=== PATIENT | female | born 1965 ===

== ENCOUNTER 2016-11-14 08:23 | Day surgery (SDC) | payer OTHER ==
[2016-11-09 07:13] VITALS: BMI 33.3
[2016-11-14] MEDS ORDERED: Lactated Ringer's 1,000 ML IV ONE ×2 (09:12)
--- NOTE | 2016-11-14 09:50 | CP.SDSHP ---
Same Day Surgery H & P - History Proposed Procedure: Hysteroscopy and Dilatation and Curettage Pre-Op Diagnosis: Abnormal Uterine Bleeding - Previous Medical/Surgical History Previous Surgical History: 2 C/Sections - Allergies Allergies: Allergies No Known Allergies Allergy (Verified 11/29/14 02:25) - Physical Exam Vital Signs: Vital Signs 11/14/16 08:42 Temperature 98.4 F Pulse Rate 77 Respiratory 18 Rate Blood Pressure 123/73 O2 Sat by Pulse 98 Oximetry Heart: WNL Lungs: WNL GI: WNL - {Optional Preform as Required} SETTER AUTOMATIC SPINNING LATHE: Other (Uterus 12 cm.) - Impression Pt. Evaluated Today:Candidate for Anesthesia & Procedure: Yes - Date & Time Date: 11/14/16 Time: 09:49 Short Stay Discharge - Short Stay Discharge Admitting Diagnosis/Reason for Visit: ABNORMAL UTERINE BLEEDING Disposition: HOME/ ROUTINE
[2016-11-14] MEDS ORDERED: Propofol 10 mg/ml Inj (20 ML) ONE (10:08)
[2016-11-14] MEDS ORDERED: Midazolam 2 MG/2 ML VIAL ONE (10:08)
[2016-11-14] MEDS ORDERED: Lidocaine Hydrochloride 5 ML INJ ONE (10:11)
[2016-11-14] MEDS ORDERED: ceFAZolin IV 1 gm in Dextrose 50 ML IVPB ONE (10:29)
[2016-11-14] MEDS ORDERED: HYDROmorphone 0.5 mg/0.5 ml ISec IVP PRN (10:33)
[2016-11-14 12:42] VITALS: RESP 16
--- NOTE | 2016-11-14 12:52 | OP ---
PROCEDURE DATE: 11/14/2016 PREOPERATIVE DIAGNOSES: Abnormal uterine bleeding, uterine fibroids. POSTOPERATIVE DIAGNOSES: Abnormal uterine bleeding, uterine fibroids. PROCEDURE: Hysteroscopy and dilatation and curettage. SURGEON: Dr. Rios DISK OPERATOR: None. ANESTHESIA: Given by VIDHI Del Angel. FINDINGS: Examination under anesthesia, the uterus was about 16 cm. The uterus sounded to 14 cm. On hysteroscopy, the endometrium appeared normal. DESCRIPTION OF PROCEDURE: Under adequate general anesthesia, the patient was placed in the lithotomy position. Perineum and vagina were prepped and draped in the usual sterile fashion. The bladder was emptied by straight catheterization. The cervix was then exposed using a weighted speculum and an anterior speculum. The cervix was grasped with single tooth tenaculum. The uterus was sounded to 14 cm. The cervix was then gradually dilated to #16 dilator. Using a 5 mm hysteroscope, the endometrial cavity was inspected. There were no abnormal findings. Endometrial curettage was then performed and the specimen was submitted to pathology. All the instruments were removed from the vagina. The patient was awoken from anesthesia and transferred to the recovery room in good condition. Aryan Rios MD cc: [id number] TT: 11/14/2016 12:51:59 en MTDD
[2016-11-14 13:14] VITALS: BP 135/60; PULSE 60; TEMP 97.9; O2SAT 99
== END 2016-11-14 13:30 | disposition home or self-care (01) ==
LOC: C.SDS 08:23
PROVIDERS: ATTEND Obstetrics & Gynecology
DX: D25.9 Leiomyoma of uterus, unspecified (principal); N93.9 Abnormal uterine and vaginal bleeding, unspecified
CPT/HCPCS: 58558; 88305; J0131; J0690; J1100; J1170; J2250; J2405; J2704; J3010; J7120

== ENCOUNTER 2016-12-16 06:30 | Inpatient (IN) | payer OTHER ==
[2016-12-12 12:28] VITALS: BMI 32.5
--- NOTE | 2016-12-16 06:37 | CP.PCM.HP ---
History of Present Illness - History of Present Illness History of Present Illness: 51 year old with 3 year history of metromenorrhagia and large fibroid admitted for Myomectomy at patient.s request, possible hysterectomy. Hysteroscopy and D&C showed proliferative endometrium. Present on Admission - Present on Admission Any Indicators Present on Admission: No Review of Systems - Reproductive: Female Reproductive:Female: As Per HPI Additional comments: 2 deliveries with BTL. Past Patient History - Infectious Disease Hx of Infectious Diseases: None - Past Medical History & Family History Past Medical History?: Yes - Past Social History Smoking Status: Never Smoked - CARDIAC Hx Cardiac Disorders: No - PULMONARY Hx Respiratory Disorders: No - NEUROLOGICAL Hx Neurological Disorder: No - HEENT Hx HEENT Problems: No - RENAL Hx Chronic Kidney Disease: No - ENDOCRINE/METABOLIC Hx Endocrine Disorders: No - HEMATOLOGICAL/ONCOLOGICAL Hx Blood Disorders: Yes (LOW VIT D) - INTEGUMENTARY Hx Dermatological Problems: Yes Other/Comment: Breast Mass - MUSCULOSKELETAL/RHEUMATOLOGICAL Hx Musculoskeletal Disorders: No Hx Back Pain: Yes (CERVICAL) Hx Falls: No - GASTROINTESTINAL Hx Gastrointestinal Disorders: No - GENITOURINARY/GYNECOLOGICAL Other/Comment: Abnormal Menstrual Bleeding - PSYCHIATRIC Hx Psychophysiologic Disorder: No Hx Substance Use: No - SURGICAL HISTORY Hx Breast Biopsy: Yes - ANESTHESIA Hx Anesthesia: Yes Hx Anesthesia Reactions: No Hx Malignant Hyperthermia: No Has any member of the family had a problem w/ anesthesia?: No Meds Allergies/Adverse Reactions: Allergies Allergy/AdvReac Type Severity Reaction Status Date / Time No Known Allergies Allergy Verified 11/29/14 02:25 Physical Exam - Constitutional Appears: Well - Respiratory Exam Respiratory Exam: Clear to Auscultation Bilateral, NORMAL BREATHING PATTERN - Cardiovascular Exam Cardiovascular Exam: REGULAR RHYTHM - GI/Abdominal Exam GI & Abdominal Exam: Normal Bowel Sounds Additional comments: Uterus 16 cm. irregular. - Extremities Exam Extremities exam: Positive for: normal inspection Assessment & Plan - Assessment and Plan (Free Text) Assessment: Symptomatic Uterine Fibroid. Plan: Patient requests Myomectomy if feasible even though she understands might not control abnormal Uterine bleeding. Otherwise will perform Hysterectomy. Risks of injuries to bowel, bladder and ureters explained. - Date & Time Date: 12/16/16 Time: 06:41
[2016-12-16] MEDS ORDERED: Propofol 10 mg/ml Inj (20 ML) ONE (07:40)
[2016-12-16] MEDS ORDERED: Midazolam 2 MG/2 ML VIAL ONE ×2 (07:41→07:59)
[2016-12-16] MEDS ORDERED: cefOXitin IV 2 gm in Dextrose 2 GM/50 ML BAG IVPB ONE (07:47)
[2016-12-16] MEDS ORDERED: Vasopressin 20 Units/ml Inj ONE (07:51)
[2016-12-16] MEDS ORDERED: Sodium Chloride 0.9% 0 ML IV ONE (07:51)
[2016-12-16] MEDS ORDERED: Rocuronium 10 mg/ml (5 ml) ONE (08:10)
[2016-12-16] MEDS ORDERED: Succinylcholine Chloride 20 mg/ml Syr (5 ml) IV ONE (08:16)
[2016-12-16] MEDS ORDERED: Morphine 4 MG/ML VIAL ONE ×2 (08:43→10:11)
[2016-12-16] MEDS ORDERED: Neostigmine Methylsulfate 3mg/3ml Syringe IV ONE (08:46)
[2016-12-16] MEDS ORDERED: ePHEDrine 50 mg/ml Inj ONE (09:01)
[2016-12-16] MEDS ORDERED: Lactated Ringer's 1,000 ML IV SCH (09:30)
--- NOTE | 2016-12-16 10:06 | PCM.SURG1 ---
Surgeon's Initial Post Op Note - Surgeon's Notes Surgeon: Gabriel Clinical Quality Manager: Tanja Type of Anesthesia: General Endo Pre-Operative Diagnosis: Symptomatic Uterine Fibroids Operative Findings: Multible UTERINE mYOMAS,NORMAL OVARIES, AND FALLOPIAN TUBES Post-Operative Diagnosis: The same Operation Performed: SupreCervical Hysterectomy and Bilateral Salpingectomy Specimen/Specimens Removed: Uterus and both Fallopian tubes Estimated Blood Loss: EBL {In ML}: 250 Blood Products Given: N/A Drains Used: No Drains Post-Op Condition: Good Date of Surgery/Procedure: 12/16/16 Time of Surgery/Procedure: 10:06
[2016-12-16] MEDS ORDERED: HYDROmorphone 0.5 mg/0.5 ml ISec IVP PRN (11:14)
[2016-12-16] MEDS ORDERED: HYDROmorphone 0.5 mg/0.5 ml ISec IVP ONE ×2 (11:30→11:40)
[2016-12-16] MEDS: Oxycodone/Acetaminophen 5/325 mg Tab PO PRN (21:57)
[2016-12-17] MEDS ORDERED: Simethicone 80 mg Chewtab PO STA (00:26)
[2016-12-17] MEDS: Oxycodone/Acetaminophen 5/325 mg Tab PO PRN ×4 (01:22→19:54)
[2016-12-17 08:15] LABS: HEMATOCRIT 36.8 % (34.0-47.0); MEAN CELL VOLUME 88.7 fL (81.0-99.0); MEAN CORPUSCULAR HEMOGLOBIN 28.9 pg (27.0-31.0); MEAN CORPUSCULAR HGB CONC 32.6 g/dL (33.0-37.0); MEAN PLATELET VOLUME 8.6 fL (7.2-11.7); RED CELL DISTRIBUTION WIDTH 14.1 % (11.5-14.5); WHITE BLOOD COUNT 9.6 K/uL (4.8-10.8)
[2016-12-17] MEDS: Simethicone 80 mg Chewtab PO SCH ×3 (09:12→17:01)
[2016-12-17] MEDS: Enoxaparin 40 mg Syringe SC SCH (09:12)
--- NOTE | 2016-12-17 10:34 | CP.PCM.PN ---
Subjective - Date & Time of Evaluation Date of Evaluation: 12/17/16 Time of Evaluation: 10:29 - Subjective Subjective: Complains of incisional pain only. No flatus or bowel movement yet. Tolerated liquid diet. Objective - Vital Signs/Intake and Output Vital Signs (last 24 hours): Temp Pulse Resp BP Pulse Ox 98.4 F 88 18 107/68 97 12/17/16 07:38 12/17/16 07:38 12/17/16 07:38 12/17/16 07:38 12/17/16 07:38 Intake and Output: 12/17/16 12/17/16 06:59 18:59 Output Total 1650 Balance -1650 - Medications Medications: Current Medications Enoxaparin Sodium (Lovenox) 40 mg SC DAILY [facility] Last Admin: 12/17/16 09:12 Dose: 40 mg Lactated Ringer's (Lactated Ringer's) 1,000 mls @ 100 mls/hr IV .Q10H [facility] Ibuprofen (Motrin Tab) 600 mg PO Q6 PRN PRN Reason: Pain, moderate (4-7) Oxycodone/Acetaminophen (Percocet 5/325 Mg Tab) 2 tab PO Q4 PRN PRN Reason: Pain, severe (8-10) Stop: 12/19/16 09:57 Last Admin: 12/17/16 07:50 Dose: 2 tab Simethicone (Mylicon Chew Tab) 80 mg PO TID [facility] Last Admin: 12/17/16 09:12 Dose: 80 mg - Labs Labs: 12/17/16 08:09 - Constitutional Appears: Well - Respiratory Exam Respiratory Exam: Clear to Ausculation Bilateral, NORMAL BREATHING PATTERN - Cardiovascular Exam Cardiovascular Exam: REGULAR RHYTHM - GI/Abdominal Exam GI & Abdominal Exam: Normal Bowel Sounds Additional comments: Soft, appropriate incisional tenderness. - Extremities Exam Extremities Exam: Normal Inspection Assessment and Plan - Assessment and Plan (Free Text) Assessment: Stable Post Hysterectomy. Plan: Ambulate . Diet as tolerated. Analgesia at patient's request.
[2016-12-18 07:59] VITALS: BP 114/63; PULSE 82; RESP 18; TEMP 98.9; O2SAT 97
[2016-12-18] MEDS: Simethicone 80 mg Chewtab PO SCH (09:07)
[2016-12-18] MEDS: Enoxaparin 40 mg Syringe SC SCH (09:07)
[2016-12-18] MEDS: Oxycodone/Acetaminophen 5/325 mg Tab PO PRN (10:11)
--- NOTE | 2016-12-18 10:38 | CP.PCM.PN ---
Subjective - Date & Time of Evaluation Date of Evaluation: 12/18/16 Time of Evaluation: 10:34 - Subjective Subjective: Complains of incisional pain relieved by Percocet. No bowel movement. Objective - Vital Signs/Intake and Output Vital Signs (last 24 hours): Temp Pulse Resp BP Pulse Ox 98.9 F 82 18 114/63 97 12/18/16 08:00 12/18/16 08:00 12/18/16 08:00 12/18/16 08:00 12/18/16 08:00 - Medications Medications: Current Medications Enoxaparin Sodium (Lovenox) 40 mg SC DAILY [facility] Last Admin: 12/18/16 09:07 Dose: 40 mg Lactated Ringer's (Lactated Ringer's) 1,000 mls @ 100 mls/hr IV .Q10H [facility] Ibuprofen (Motrin Tab) 600 mg PO Q6 PRN PRN Reason: Pain, moderate (4-7) Last Admin: 12/18/16 09:06 Dose: 600 mg Oxycodone/Acetaminophen (Percocet 5/325 Mg Tab) 2 tab PO Q4 PRN PRN Reason: Pain, severe (8-10) Stop: 12/19/16 09:57 Last Admin: 12/18/16 10:11 Dose: 2 tab Simethicone (Mylicon Chew Tab) 80 mg PO TID [facility] Last Admin: 12/18/16 09:07 Dose: 80 mg - Labs Labs: 12/17/16 08:09 - Cardiovascular Exam Cardiovascular Exam: REGULAR RHYTHM - GI/Abdominal Exam GI & Abdominal Exam: Normal Bowel Sounds Additional comments: Incision C/D/I - Extremities Exam Extremities Exam: Normal Inspection Assessment and Plan - Assessment and Plan (Free Text) Assessment: Stable Post Hysterectomy. Plan: Discharge home. Follow up 2 weeks.
--- NOTE | 2016-12-18 10:43 | CP.PCM.DIS ---
Provider - Provider Date of Admission: 12/16/16 09:56 Attending physician: Aryan Rios MD Time Spent in preparation of Discharge (in minutes): 30 Hospital Course - Lab Results Lab Results: Most Recent Lab Values WBC 9.6 K/uL (4.8-10.8) 12/17/16 08:09 RBC 4.15 Mil/uL (3.80-5.20) 12/17/16 08:09 Hgb 12.0 g/dL (11.0-16.0) 12/17/16 08:09 Hct 36.8 % (34.0-47.0) 12/17/16 08:09 MCV 88.7 fL (81.0-99.0) 12/17/16 08:09 MCH 28.9 pg (27.0-31.0) 12/17/16 08:09 MCHC 32.6 g/dL (33.0-37.0) L 12/17/16 08:09 RDW 14.1 % (11.5-14.5) 12/17/16 08:09 Plt Count 214 K/uL (130-400) 12/17/16 08:09 MPV 8.6 fL (7.2-11.7) 12/17/16 08:09 Blood Type A POSITIVE 12/16/16 07:22 Antibody Screen Negative 12/16/16 07:22 - Date & Time of H&P Date of H&P: 12/16/16 Discharge Exam - Respiratory Exam Respiratory Exam: NORMAL BREATHING PATTERN - GI/Abdominal Exam GI & Abdominal Exam: Normal Bowel Sounds Discharge Plan - Follow Up Plan Condition: GOOD Disposition: HOME/ ROUTINE Instructions: Abdominal Hysterectomy (DC), Wound Healing and Your Diet (DC), Care For Your Absorbable Stitches (DC) Additional Instructions: follow up in 2 weeks in office/ no heavy lifting/ nothing in the vagina/ no driving
--- NOTE | 2016-12-19 10:43 | OP ---
PROCEDURE DATE: 12/16/2016 PREOPERATIVE DIAGNOSES: Fibroid uterus, menometrorrhagia. POSTOPERATIVE DIAGNOSES: Fibroid uterus, menometrorrhagia. PROCEDURE: Supracervical abdominal hysterectomy and bilateral salpingectomy. SURGEON: Aryan Rios MD ARTIFICIAL GLASS EYE MAKER: Dr. Agrawal, who was required for retraction and was present throughout the entire procedure. ANESTHESIA: General endotracheal tube. FINDINGS: About 16cm uterus. Normal ovaries. The fallopian tubes had evidence of previous ligation bilateral. There was minimal adhesion between the bladder and the lower uterine segment. DESCRIPTION OF PROCEDURE: Under adequate general anesthesia, the abdomen was prepped and draped in the usual sterile fashion. Going through a previous Pfannenstiel scar, the skin was incised and carried through the subcutaneous tissues to the fascia. The fascia was divided transversely and dissected off the rectus muscle. The rectus muscle was in the midline sharply and the abdomen was entered. The uterus was delivered into the incision. The findings above were noted. The right round ligament was transected using the LigaSure. The broad ligament was opened anteriorly to the vesicouterine peritoneal fold. The ovarian ligament and the fallopian tube were doubly clamped, transected and doubly ligated with 0 Vicryl suture. The left round ligament was similarly transected with the LigaSure. The left fallopian tube and left ovarian ligament were doubly clamped, transected and doubly ligated with 0 Vicryl suture. The right uterine vessels were doubly clamped with Annie clamp, transected and doubly ligated with 0 Vicryl suture. The left uterine vessels were similarly ligated after transection. The uterus was then removed from the cervix. The endocervical stump was closed using 0 Vicryl suture, [id number] sutures. Hemostasis was achieved. Both fallopian tubes were transected using the LigaSure. Hemostasis was achieved. The abdomen was then copiously irrigated with saline. All the surgical stumps were reinspected and noted to be hemostatic. The parietal peritoneum was then approximated with 0 chromic catgut. The rectus fascia was approximated with 0 Vicryl suture continuous fashion. The subcutaneous tissues were approximated with 2-0 plain catgut. The skin was closed using 4-0 Biosyn subcuticular suture. The estimated blood loss was about 250 mL. Fluids received were 1200 mL crystalloid. The urine output was 100 mL clear. The sponge, instrument and needle counts were correct x 3. The patient was extubated in the operating room. The specimen was the uterus and both fallopian tubes to pathology. The patient was transferred from the operating room to the recovery room in good condition. Aryan Rios MD cc: [id number] TT: 12/19/2016 10:43:22 en MTDD
== END 2016-12-18 12:00 | disposition home or self-care (01) | DRG 743 ==
LOC: C.SDS 06:30 → C.4M 09:56
PROVIDERS: ADMIT Obstetrics & Gynecology; ATTEND Obstetrics & Gynecology
PROC: 0UT70ZZ Resection of Bilateral Fallopian Tubes, Open Approach (ICD-10-PCS; 2016-12-16)
PROC: 0UT90ZZ Resection of Uterus, Open Approach (ICD-10-PCS; principal; 2016-12-16 07:53)
DX: D25.9 Leiomyoma of uterus, unspecified (principal); N92.1 Excessive and frequent menstruation with irregular cycle; Z98.51 Tubal ligation status

== ENCOUNTER 2017-02-04 17:03 | Emergency (ER) | payer OTHER ==
[2017-02-04 17:03] VITALS: BMI 32.5
[2017-02-04 17:26] VITALS: BP 131/80; PULSE 81; RESP 18; TEMP 98.1; O2SAT 98
--- NOTE | 2017-02-04 17:41 | C.PDOC ---
History Of Present Illness <Alejandro Mario - Last Filed: 02/04/17 17:49> <Kusum Sandoval - Last Filed: 02/04/17 20:34> 51 y/o female presents to ED for evaluation left chest wall burning rash gradually developed 4-5 days ago. Patient denies fever, chills, injury or any other complaints at this time. (Kusum Sandoval) <Alejandro Mario - Last Filed: 02/04/17 17:49> History Per: Patient History/Exam Limitations: no limitations Onset/Duration Of Symptoms: Days Current Symptoms Are (Timing): Still Present <Keerthi Sandovalnika - Last Filed: 02/04/17 20:34> Time Seen by Provider: 02/04/17 17:23 Chief Complaint (Nursing): Abnormal Skin Integrity Past Medical History Reviewed: Historical Data, Nursing Documentation, Vital Signs Family History: States: No Known Family Hx - Social History Hx Tobacco Use: No Hx Alcohol Use: No Hx Substance Use: No - Immunization History Hx Tetanus Toxoid Vaccination: No Hx Influenza Vaccination: Yes Hx Pneumococcal Vaccination: No <Keerthi Sandovalnika - Last Filed: 02/04/17 20:34> Vital Signs: Last Vital Signs Temp 98.1 F 02/04/17 18:19 Pulse 81 02/04/17 18:19 Resp 18 02/04/17 18:19 BP 131/80 02/04/17 18:19 Pulse Ox 98 02/04/17 18:19 - [facility] Procedures OTHER SKIN & SUBQ I D (11/26/14) RESECTION OF BILATERAL FALLOPIAN TUBES, OPEN APPROACH (12/16/16) RESECTION OF UTERUS, OPEN APPROACH (12/16/16) Review Of Systems Except As Marked, All Systems Reviewed And Found Negative. Constitutional: Negative for: Fever, Chills Skin: Positive for: Rash Neurological: Negative for: Weakness, Numbness <Keerthi Sandovalnika - Last Filed: 02/04/17 20:34> Physical Exam - Physical Exam Appears: Well, Non-toxic, No Acute Distress Skin: Normal Color, Warm, Rash (Left lateral chest wall vesicular rash on erythematous base extends to Left posterior chest wall overlying T6 dermatome ) Eye(s): bilateral: PERRL Cardiovascular: Rhythm Regular Respiratory: No Decreased Breath Sounds, No Accessory Muscle Use, No Stridor, No Wheezing Gastrointestinal/Abdominal: Soft, No Tenderness, No Distention, No Guarding Back: No CVA Tenderness Extremity: No Pedal Edema Neurological/Psych: Oriented x3, Normal Speech <Kusum Sandoval - Last Filed: 02/04/17 20:34> ED Course And Treatment O2 Sat by Pulse Oximetry: 98 Pulse Ox Interpretation: Normal Progress Note: On re-evaluation, pt is not in any apparent distress. PulseOx 100% RA. NEck: (-) meningeal sign. ENT: no acute findings. Lungs: CTA B/L, BS equal B/L. Abd: benign, (-) guarding, (-) rebound. Skin: exam c/w H.Zoster Left T6 dermatome, no evidence of superimposed infection. No cellulitis. Pt advised on course of ds. ref. to f/u with pmd in 2-3 days for re-eavl. return if any new changes. <Kusum Sandoval - Last Filed: 02/04/17 20:34> Disposition <Alejandro Mario - Last Filed: 02/04/17 17:49> Counseled Patient/Family Regarding: Diagnosis, Need For Followup, Rx Given - Disposition Disposition Time: 17:41 <Kusum Sandoval - Last Filed: 02/04/17 20:34> - Disposition Referrals: Smiley Adhikari MD [Staff Provider] - Disposition: HOME/ ROUTINE Condition: STABLE Additional Instructions: Take medication as prescribed Follow up with PMD in 2-3 days for re-evaluation. Return to ED oif any worsening or new changes. Prescriptions: Bacitracin OINT 1 applic TP BID #1 tube traMADol [Ultram] 50 mg PO TID #7 tab valACYclovir [Valtrex] 1 gm PO TID #21 tab Instructions: Shingles (ED) Forms: Work Excuse - Clinical Impression Clinical Impression: Herpes zoster - PA / LASER BEAM COLOR SCANNER OPERATOR / Resident Statement / has reviewed & agrees with the documentation as recorded. - Scribe Statement The provider has reviewed the documentation as recorded by the Scribe <Alejandro Mario - Last Filed: 02/04/17 17:49> - PA / LASER BEAM COLOR SCANNER OPERATOR / Resident Statement / has reviewed & agrees with the documentation as recorded. - Scribe Statement The provider has reviewed the documentation as recorded by the Scribe <Kusum Sandoval - Last Filed: 02/04/17 20:34> - Scribe Statement Greg Rodriguez All medical record entries made by the Scribe were at my direction and personally dictated by me. I have reviewed the chart and agree that the record accurately reflects my personal performance of the history, physical exam, medical decision making, and the department course for this patient. I have also personally directed, reviewed, and agree with the discharge instructions and disposition. (Alejandro Mario)
== END 2017-02-04 18:19 | disposition home or self-care (01) ==
LOC: C.ER 17:03
DX: B02.9 Zoster without complications (principal)

== ENCOUNTER 2018-09-12 16:36 | Outpatient (CLI) | payer OTHER | END 2018-09-12 16:37 | disposition home or self-care (01) | LOC: C.MRIC 16:36 | DX: M54.5 Low back pain (principal); M47.22 Other spondylosis with radiculopathy, cervical region ==

== ENCOUNTER 2018-10-16 09:26 | Outpatient (CLI) | payer OTHER | END 2018-10-16 09:27 | disposition home or self-care (01) | LOC: C.LAB 09:26 | DX: M47.22 Other spondylosis with radiculopathy, cervical region (principal) ==

== ENCOUNTER 2018-10-22 12:58 | Outpatient (CLI) | payer OTHER | END 2018-10-22 12:59 | disposition home or self-care (01) | LOC: C.PAT 12:58 | DX: S43.422D Sprain of left rotator cuff capsule, subsequent encounter (principal) ==

== ENCOUNTER 2018-11-09 06:03 | Day surgery (SDC) | payer OTHER ==
[2018-07-19 09:19] VITALS: BMI 32.5
[2018-11-09] MEDS ORDERED: Ropivacaine 0.5% PF (20 ml) inj INJ ONE ×2 (06:56→13:15)
[2018-11-09] MEDS ORDERED: ceFAZolin 1 gm in NS 2 GM/200 ML BAG IVPB ONE (07:40)
[2018-11-09] MEDS ORDERED: Lidocaine Hydrochloride 5 ML INJ ONE (07:41)
[2018-11-09] MEDS ORDERED: Midazolam 2 MG/2 ML VIAL ONE (08:10)
[2018-11-09] MEDS ORDERED: Propofol 10 mg/ml Inj (20 ML) ONE (08:10)
[2018-11-09] MEDS ORDERED: Lidocaine Hydrochloride 0 ML INJ ONE (08:11)
[2018-11-09] MEDS ORDERED: methylPREDNISolone Depo 80 mg/ml Inj ONE (08:11)
[2018-11-09] MEDS ORDERED: Rocuronium 10 mg/ml (10 ml) ONE ×2 (08:12→10:37)
[2018-11-09] MEDS ORDERED: EPINEPHrine- 1.5 MG in Sodium Chloride 0.9% Irrig 3,000 ML IR SCH (08:15)
[2018-11-09] MEDS ORDERED: Lidocaine/Epinephrine 1% 1:100000 10 ML IJ ONE (09:01)
[2018-11-09] MEDS ORDERED: Dexamethasone 4 mg/1 ml ONE (09:20)
[2018-11-09] MEDS ORDERED: HYDROmorphone 0.5 mg/0.5 ml ISec IVP PRN (09:23)
[2018-11-09] MEDS ORDERED: EPINEPHrine 1 mg/ml (1:1000) Inj ONE (10:37)
--- NOTE | 2018-11-09 10:53 | PCM.ANESB1 ---
Interscalene Block - Brachial Plexus Date of Procedure: 11/09/18 Anesthesiologist: Leydi Pre-Procedure Diagnosis: Left shoulder rotator cuff tear Post-Procedure Diagnosis: same Procedure Performed: Interscalene Block of Brachial Plexus Left - Procedure Interscalene Block of Brachial Plexus: This procedure was explained to the patient that it is for post-operative pain management. Consent was obtained after a thorough discussion with the patient regarding the benefits and possible complications of local anesthetic block of the Brachial Plexus at the Interscalene area. The patient was brought to the Operating Room and standard monitors were applied. Time out was held with the circulating nurse to confirm the correct surgery and appropriate block. After applying Oxygen by nasal cannula and administering IV Sedation, the patient's head was gently rotated away from the left operative shoulder and the anterior scalene groove was carefully palpated. The ultrasound transducer was then applied to the skin in the transverse plane and the brachial plexus was visualized lateral to the carotid artery and in between the anterior and middle scalene muscles. After identification,the anterior lateral portion of the neck was prepped with chloraprep and 3mL of Lidocaine 1% was injected subcutaneously for topical analgesia. At this point, a # 22 gauge Stimuplex 2 inches insulated needle was inserted into the interscalene groove and directed in a caudal and midline direction. The needle was inserted lateral to the ultrasound transducer in-plane towards the brachial plexus in a [id number] direction. Needle advancement was performed carefully under direct ultrasound visualization. Nerve stimulator was used and twitched of the affected extremity including the hand brachialis muscles, biceps and the deltoid was obtained at a current of 0.5 MA. After repeated negative aspiration, 2cc of 0.5% Ropivacaine were injected and this was followed with 28 cc of 0.5% Ropivacaine. Under ultrasound guidance the local anesthetics were observed surrounding the roots of the brachial plexus. The needle was removed intact and sterile dressing was applied. The patient had stable vital signs, was conscious and in no apparent distress. The patient tolerated the interscalene block of the bracheal plexus well with stable vital signs and was prepared for subsequent surgery.
[2018-11-09] MEDS ORDERED: Neostigmine 1:1000 (1 mg/ml) Inj ONE (11:08)
[2018-11-09] MEDS ORDERED: Morphine 1 mg/ml preservative-free Inj(Duramorph) ONE (11:12)
[2018-11-09] MEDS ORDERED: Bupivacaine 0.25% 20 ML INJ IJ ONE (11:13)
--- NOTE | 2018-11-09 11:37 | PCM.SURG1 ---
Surgeon's Initial Post Op Note - Surgeon's Notes Surgeon: Renate Valiente MD [employer] Trader: Tay Stratton PA-C Type of Anesthesia: General Endo Anesthesia Administered By: Dr. Morin Pre-Operative Diagnosis: Left shoulder rotator cuff tear, biceps tendinitis, AC joint hypertrophy Operative Findings: partial biceps tear >50% Post-Operative Diagnosis: Same Operation Performed: Left shoulder arthroscopy, arthroscopic acromioplasty and debridement, mini open rotator cuff repair Specimen/Specimens Removed: none Estimated Blood Loss: EBL {In ML}: 20 Blood Products Given: N/A Drains Used: No Drains Post-Op Condition: Fair Date of Surgery/Procedure: 11/09/18 Time of Surgery/Procedure: 11:36 Results - Vital Signs Recent Vital Signs: Last Vital Signs Temp 98 F 11/09/18 06:14 Pulse 81 11/09/18 06:14 Resp 18 11/09/18 06:14 BP 116/68 11/09/18 06:14 Pulse Ox 98 11/09/18 06:14 - Impressions Impression: [place] [employer] FRAMEWORK DEVELOPER patient report reviewed, no CDS. Patient counseled on the risks of addiction, physical or psychological dependence, and overdose associated with o pioid drugs and the danger of taking opioid drugs with alcohol and other central nervous system depressants, and cautioned patient on storage and disposal.
[2018-11-09] MEDS ORDERED: Oxycodone/Acetaminophen 5/325 mg Tab PO PRN (11:43)
[2018-11-09] MEDS: HYDROmorphone 0.5 mg/0.5 ml ISec IVP PRN ×3 (12:00→13:00)
[2018-11-09] MEDS ORDERED: ceFAZolin 1 gm FROZEN Premix 1 GM/50 ML ML IVPB ONE (14:00)
[2018-11-09 14:37] VITALS: BP 130/70; PULSE 71; RESP 18; TEMP 98; O2SAT 100
--- NOTE | 2018-11-11 15:05 | OP ---
PROCEDURE DATE: 11/09/2018 PREOPERATIVE DIAGNOSES: 1. Impingement syndrome. 2. Acromioclavicular arthritis. 3. Tear of the rotator cuff. 4. Hypertrophic subacromial bursitis. 5. Biceps tendonitis and impingement syndrome of the left shoulder. POSTOPERATIVE DIAGNOSES: 1. Frayed long head of the biceps tendon. 2. Impingement syndrome. 3. Acromioclavicular arthritis. 4. Hypertrophic acromial bursitis. 5. Rotator cuff tear of the supraspinatus tendon with moderate retraction. PROCEDURES: 1. Diagnostic glenohumeral arthroscopy. 2. Diagnostic subacromial bursoscopy. 3. Subacromial bursectomy. 4. Acromioplasty subacromial decompression. 5. Resection of the lateral end of the clavicle. 6. Tenotomy of the long head of the biceps tendon. 7. Chondroplasty of the glenoid and hypertrophic synovectomy of the glenohumeral joint. DESCRIPTION OF PROCEDURE: Prior to the procedure, risks and benefits of the surgery, prognosis and complications were explained including infection, cardiac, pulmonary, recurrence, need for future surgery, fluid extravasation, permanent weakness, permanent numbness, possible loss of life and limb, need for future surgical procedures and the patient fully understood, agreeable, all the questions were answered. The patient is told about possible loss of life and limb and free tear of the rotator cuff, etc. The patient was brought to the operating room. The left shoulder was identified as the shoulder to be operated. Left shoulder was prepped and draped in the usual manner after getting the patient in a beach chair position. A scalene block was introduced and endotracheal intubation was also done. Once the proper site identification was done, glenohumeral arthroscopy was done to the posterior subacromial portal. Instrumentation was done to the anterior paracoracoid portal as well as the subacromial lateral portal. Once this was accomplished, we entered the glenohumeral joint and fraying and severe biceps tendonitis noted of the long head of the biceps tendon. The tendon was lacerated 50% of its diameter. At this point, we decided to do a tenotomy of the long head of the biceps tendon. Next, we proceeded with inspection of the glenohumeral joint. A retracted tear of the rotator cuff was seen through this articular site. Also, we did a chondroplasty and partial synovectomy of the hypertrophic synovium at the glenohumeral joint. Next, we removed the arthroscope in the glenohumeral joint. No evidence of Bankart lesion noted. Hill-Sachs lesion was absent. Arthroscope was introduced into subacromial space. Hypertrophic bursitis was noted. Hypertrophic bursectomy was done. Then, we proceeded with acromioplasty medial to lateral, anterior to posterior in a methodical way. Once this was accomplished, we did a cutting-block technique to finish the acromioplasty. Then, we also proceeded with resection of the lateral end of the clavicle. Hypertrophy of the acromioclavicular joint was noted and arthroscopic Binta procedure was done. Then, we looked from the bursal side and retracted tear of the supraspinatus tendon was noted. The ends were debrided. Then, we proceeded with reversing the portals. We used the anterior paracoracoid portal for instrumentation, lateral subacromial portal for the arthroscope insertion and fine tuning of the resection of the acromioplasty was done and completion of the resection of the lateral end of clavicle was also done. At this point, the joint was thoroughly irrigated. We made a small incision limited mini open incision extending from the lateral edge of the acromion for a distance of 2.5 cm. Deltoid muscle was split in the direction of its fibers, and waited for a minute, it showed that the deltoid split did not extend distally more than 2.5 cm from the acromion process. Once this was done, we applied inferior traction and further completion of hypertrophic bursectomy was done. A retracted tear of the supraspinatus tendon was noted. The ends were debrided and the footprint was decorticated and with JuggerKnot double loaded suture anchor, the sutures were passed through the rotator cuff and tied. We got excellent watertight repair. At this point, wound was thoroughly irrigated and using a rasp, we further did finishing touches with acromioplasty as well as the resection of the lateral end of the clavicle. At this point, wounds were thoroughly irrigated. Marcaine and Duramorph were injected into the subacromial bursa area. Wounds were closed in layers. The shoulder was placed in abduction pillow and shoulder immobilizer. The patient tolerated the procedure well, left the operating room to the recovery room in a satisfactory condition. Hieu Valiente MD
== END 2018-11-09 15:39 | disposition home or self-care (01) ==
LOC: C.SDS 06:03
PROVIDERS: ATTEND Orthopaedic Surgery
DX: S43.422D Sprain of left rotator cuff capsule, subsequent encounter (principal); M75.102 Unspecified rotator cuff tear or rupture of left shoulder, not specified as traumatic; M75.42 Impingement syndrome of left shoulder; M75.50 Bursitis of unspecified shoulder
CPT/HCPCS: 29821; 29826; 29827; C1713; J0131; J0171; J0690; J1170; J1885; J2001; J2250; J2270; J2405; J2704; J2710; J3010